=== PATIENT | female | born 1985 | race Caucasian/White ===

== ENCOUNTER → 2021-07-09 | Outpatient (CLI) | payer BC ==
[~2021-07-09] MED LIST: NO HOME MEDICATIONS; TAMIFLU 75MG75 MG PO
== END ==
LOC: COL.RAD 10:57
DX: N13.30 Unspecified hydronephrosis (principal); Z87.440 Personal history of urinary (tract) infections

== ENCOUNTER 2024-02-27 05:39 | Day surgery (SDC) | payer BC ==
[2024-02-27] VITALS (11 sets, daily range): BP systolic 88–110; BP diastolic 47–77; PULSE 64–81; TEMP 97–98.8
[~2024-02-27 05:39] MED LIST changes: +LR 1,000 ML IV SCH
[2024-02-27] MEDS ORDERED: ZOLOFT 100MG100 MG PO (06:52)
[2024-02-27] MEDS ORDERED: SYNTHROID0.175 MG PO (06:53)
[2024-02-27] MEDS ORDERED: MOUNJARO7.5 MG/0.5 SQ (06:54)
[2024-02-27] MEDS ORDERED: ceFAZolin 1 G in Water For Injection,Sterile 10 ML IV ONE (07:15)
--- NOTE | 2024-02-27 07:32 | NUR ---
Pt off floor for surgery.
[2024-02-27] MEDS ORDERED: Lidocaine PF 2% (20 MG/ML) 5 ML VIAL ONE (07:45)
[2024-02-27] MEDS ORDERED: Ondansetron 4 MG/2 ML VIAL ONE (07:47)
[2024-02-27] MEDS ORDERED: NS 10 ML IV ONE (07:47)
[2024-02-27] MEDS ORDERED: Rocuronium 50 MG/5 ML Multi-Dose VIAL ONE (08:07)
[2024-02-27] MEDS ORDERED: Lidocaine 2% (20 MG/ML) 20 ML UROJET UR ONE (08:13)
[2024-02-27] MEDS ORDERED: NORCO 325 MG-51 TAB PO (08:29)
[2024-02-27] MEDS ORDERED: hydrALAZINE 20 MG/ML 1 ML VIAL IV PRN (08:30)
[2024-02-27] MEDS ORDERED: fentaNYL 50 MCG/ML 1 ML SYRINGE/VIAL [PACU/SDC ONLY] IV PRN (08:30)
[2024-02-27] MEDS ORDERED: Acetaminophen 325 MG TAB PO PRN (08:30)
[2024-02-27] MEDS ORDERED: Hyoscyamine 0.125 MG Sublingual TAB SL PRN (08:30)
[2024-02-27] MEDS ORDERED: Ondansetron 4 MG/2 ML VIAL IV PRN ×2 (08:30)
[2024-02-27] MEDS ORDERED: HYDROmorphone 1 MG/1 ML SYRINGE [PACU/SDC ONLY] IV PRN (08:30)
[2024-02-27] MEDS ORDERED: Naloxone 0.4 MG/ML VIAL IV PRN (08:30)
[2024-02-27] MEDS ORDERED: Acetaminophen 500 MG TAB PO SCH (09:27)
--- NOTE | 2024-02-27 09:54 | NUR ---
VENKAT met with patient's spouse ( George [phone]) patient was currently in surgery, patient's spouses supported VENKAT with intake and discuss discharge planning. George confirmed that her PCP is Dr Sky with [facility] and pharmacy of choice is [facility]. Patient resides in their home in [place]. Patient's spouse was provided DPOA information, currently they do not have one completed, he did not select to completed documentation at this time. VENKAT was informed by patients spouse that patient currently does not use any current DMEs and is independent with ADLs. Discharge plan: home (pending further medical recommendations)
--- NOTE | 2024-02-27 11:04 | NUR ---
Post op BPs are soft 90s and 80s. Per Pt, sh has soft BPs. typically 85 systolic. Pt is A&Ox4 and non-symptomatic. Call light in reach.
--- NOTE | 2024-02-27 11:53 | NUR ---
Data: Spiritual Care visit attempted. Patient sleeping. Visitor declined. Assessment: None at this time. Plan of Care: Chaplains will remain available as requested while Patient is admitted to this hospital.
--- NOTE | 2024-02-27 13:05 | NUR ---
Pt and family educated on D/C instructions. Answered Pt questions. D/C'ed INT from L AC. Pressure bandage applied. Pt ambulated to vehicle with Lavern ROWELL.
== END 2024-02-27 13:07 | disposition home or self-care (01) ==
LOC: SURG 05:39 → SDCO 05:39
DX: N13.0 Hydronephrosis with ureteropelvic junction obstruction (principal)
CPT/HCPCS: OP; C1769; C1894; J0690; J2405; J2704